=== PATIENT | male | born 1945 | race American Indian/Alaskan Native ===

== ENCOUNTER 2017-10-23 14:08 | Outpatient (CLI) | payer MEDICARE ==
--- NOTE | 2017-10-23 22:35 | XRay Report ---
FINAL REPORT PROCEDURE: XR CHEST ROUTINE 2V TECHNIQUE: PA and lateral chest radiographs were obtained. CPT 26031 HISTORY: HYPERTENSIVE/COUGH COMPARISON: No prior studies are available for comparison. FINDINGS: Heart: Normal size.. Mediastinum/Vessels: Normal. Lungs/Pleural space: Are hyperinflated. There is increased AP diameter and flattening of the diaphragms consistent with underlying COPD. The lungs are clear. No infiltrates masses effusions or pneumothorax are visualized. Bony thorax: No acute osseous abnormality. Other: IMPRESSION: COPD. No evidence of acute cardiac or pulmonary process..
== END 2017-10-23 14:09 | disposition home or self-care (01) ==
LOC: XRAY 14:08
PROVIDERS: ATTEND Family Medicine
DX: E11.9 Type 2 diabetes mellitus without complications (principal); I10 Essential (primary) hypertension; E78.2 Mixed hyperlipidemia; J44.9 Chronic obstructive pulmonary disease, unspecified
CPT/HCPCS: 71046